=== PATIENT | male | born 1955 | race Caucasian/White ===

== ENCOUNTER 2016-06-25 10:51 | Emergency (ER) | payer OTHER, MEDICARE ==
[~2016-06-25] VITALS: Ht 182.9 cm; Wt 106.6 kg
[~2016-06-25 10:51] MED LIST: FLEXERIL10 MG PO; PREDNISONE10 MG PO
--- NOTE | 2016-06-25 11:16 | ED CARDIAC/CP/PALPITATIONS ---
See Addendum History of Present Illness General Chief Complaint: Chest Pain Stated Complaint: CP Source: patient, family, old records Exam Limitations: no limitations Vital Signs & Intake/Output Vital Signs & Intake/Output Vital Signs Date Time Temp Pulse Resp B/P B/P Pulse O2 O2 Flow FiO2 Mean Ox Delivery Rate 06/25 1401 97.2 83 18 120/68 96 Room Air 06/25 1100 98.4 94 18 161/77 95 Room Air Allergies Coded Allergies: NO KNOWN ALLERGIES (12/23/13) Reconcile Medications Cyclobenzaprine HCl 10 MG TABLET 1 TAB PO BID PRN pain Insulin Glargine,Hum.rec.anlog (Lantus Solostar) 100 UNIT/ML (3 ML) INSULN.PEN 15 U SC DAILY DIABETES (Reported) Insulin Glargine,Hum.rec.anlog (Lantus Solostar) 100 UNIT/ML (3 ML) INSULN.PEN 44 UNIT SC QPM DIABETES (Reported) Lisinopril 20 MG TABLET 1 TAB PO DAILY HEART (Reported) Metformin HCl 500 MG TABLET 1 TAB PO BID DIABETES (Reported) Nortriptyline HCl 25 MG CAPSULE 1 CAP PO QPM UNKNOWN (Reported) Oxycodone HCl 30 MG TABLET 1 TAB PO Q4 PAIN (Reported) Oxycodone HCl (Oxycontin) 60 MG TAB.ER.12H 1 TAB PO TID PAIN (Reported) Pregabalin (Lyrica) 75 MG CAPSULE 1 CAP PO TID PAIN (Reported) Trazodone HCl 50 MG TABLET 1 TAB PO QPM SLEEP (Reported) Triage Note: 60 Y/O MALE C/O L SIDED CHEST PAIN RADIATING INTO L BACK X 2 DAYS. STATES PAIN WORSE WITH BREATHING. DENIES OTHER COMPLAINTS. EKG COMPLETED AND SIGNED - NORMAL SINUS, RATE 94 Triage Nurses Notes Reviewed? yes Onset: Abrupt Duration: day(s): (2.5), constant Timing: recent history Quality/Severity: moderate, aching, sharp Location: L SIDED Radiation: back Activities at Onset: S/P DOING YARD WORK Prior Chest Pain/Card Workup: no prior chest pain Nitro Today/Relief: no nitro taken today Aspirin Today: no aspirin today Associated Symptoms: DENIES HPI: 60-year-old male with history of hypertension diabetes chronic back pain for which she is in pain management presents complaining of left-sided chest pain that radiates around into his left upper back for the past 2 and half days. He states his symptoms came on after he was doing arc work outside the holes and gardening. Patient denies fall or other trauma. Pain is worse with coughing outpatient. He has not taken anything for his symptoms. He denies dizziness light has palpitations. No shortness of breath or cough or hemoptysis. He denies any and all pain nausea or vomiting. No recent immobility no leg pain or swelling. (YURIDIA HARRISON) Past History Travel History Traveled to [place] past 21 day No Medical History Any Pertinent Medical History? 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 No (YURIDIA HARRISON) Review of Systems Review of Systems Constitutional: Reports: see HPI. All Other Systems: Reviewed and Negative Comments Review of systems: See HPI, All other systems negative. Constitutional, no chills no fever, no malaise HEENT: no sore throat no congestion, no ear pain Cardiovascular: chest pain , no palpitation , no orthopnea Skin: no rashes, no change in skin Respiratory: No dyspnea no cough no sputum no hemoptysis GI: No nausea no vomiting, no diarrhea, no bloating/constipation : No dysuria Muscle skeletal: No joint pain, no joint swelling, no back pain, no neck pain, Neurologic: No numbness no headache Psych: No stress Heme/endocrine: No bruising no bleeding Immunology: No lymphadenopathy (YURIDIA HARRISON) Physical Exam Physical Exam General Appearance: well developed/nourished, alert, awake Cardiovascular: regular rate/rhythm Comments: Well-developed well-nourished person in no acute distress HEENT: Normal EENT exam; PERRL, EOMI, HEAD is atraumatic. moist mucous membranes. Neck: Supple, no lymphadenopathy, normal range of motion Back: Nontender, no CVA tenderness. Full range of motion Cardiovascular: Regular rate and rhythms no murmurs rubs or gallops, normal JVP Respiratory: Chest tender to palpation over the left axilla there is no bruising or ecchymosis.There were no bony deformities, no asymmetry. No respiratory distress. Patient speaking in full complete sentences. Breath sounds clear to auscultation bilaterally: NO W/R/R Abdomen: Soft, nontender nondistended, no appreciable organomegaly. Normal bowel sounds. No rebound/guarding, No appreciable enlargement of the abdominal aorta, No ascites. Extremity: No edema, full range of motion of extremities Neuro: Alert oriented x3, motor sensory normal. There were no obvious focal neurologic abnormalities. Skin: No appreciable rash on exposed skin, skin is warm and dry. Psych: Mood and affect is normal, memory and judgment is normal. Core Measures ACS in differential dx? Yes Severe Sepsis Present: No Septic Shock Present: No (NIDA ADAMS,YURIDIA) Progress Differential Diagnosis: AMI, aortic dissection, atrial fibrillation, cholecystitis, CHF/pulm edema, costochondritis, musculoskeletal pain, myocarditis, pancreatitis, pericarditis, pneumonia, pneumothorax, pulmonary embolism, PUD/GERD, PVCs/PACs, unstable angina, V-fib/V-Tach Plan of Care: Orders Procedure Date/time Status LIPASE 06/25 1145 Complete AMYLASE 06/25 1145 Complete Telemetry/Double End Trimmer 06/25 1104 Active TROPONIN LEVEL 06/25 1104 Complete PROTHROMBIN TIME 06/25 1104 Complete MAGNESIUM 06/25 1104 Complete D-DIMER 06/25 1104 Complete COMPREHENSIVE METABOLIC PANEL 06/25 1104 Complete CBC WITHOUT DIFFERENTIAL 06/25 1104 Complete EKG 06/25 1052 Active Current Medications Sig/Michael Start time Last Medication Dose Stop Time Status Admin Hydromorphone HCl 1 MG ONCE ONE 06/25 1130 CAN (Dilaudid) 06/25 1131 Laboratory Tests 06/25/16 1145: Anion Gap 12, Estimated GFR > 60, BUN/Creatinine Ratio 22.5, Glucose 404 H, Calcium 8.9, Magnesium 1.5 L, Total Bilirubin 0.7, AST 39, ALT 40, Alkaline Phosphatase 245 H, Troponin I < 0.01, Total Protein 7.2, Albumin 3.1 L, Globulin 4.1, Albumin/Globulin Ratio 0.8 L, Amylase 46, Lipase 52, PT 11.8, INR 1.13, D-Dimer 1622 H, CBC w Diff MAN DIFF ORDERED, RBC 4.03 L, MCV 83.3, MCH 27.2, RDW 18.4 H, MPV 11.3 H, Segmented Neutrophils 56, Band Neutrophils 2, Lymphocytes 31, Monocytes 9, Eosinophils 2, Platelet Estimate ADEQUATE, Normocytic RBCs VERIFIED, Normochromic RBCs VERIFIED, Tyson Cells FEW, PUBS MCHC 32.7 L 06/25/16 1117: D-Dimer Cancelled 06/25/16 1116: Amylase Cancelled, Lipase Cancelled Labs ordered patient medicated with Dilaudid 1 mg Iv Flexeril as he states this is helpful for her pain is reproducible and chest K's was discussed with Dr. harrison 1230 pt reports improvement in sx, d/w him his lab results to date and need for cta 06/25/2016 2:01:21 PM I discussed with the patient and family at length all of his CAT scan and lab results and incidental findings including h including the pleural effusion, and enlarged lymph nodes and liver findings. Discussed the need for close follow-up with his primary care physician given elevated white blood cell count today. They feel comfortable with plan. For the same- given the pain has been present for 2 and half days after taking and doing yard work reproducible with palpation and CHOP later required repeat troponin pain is reproducible he feels comfortable plan Ad an extensive conversation regarding need for close follow up with their primary care physician this week as well as return precautions. I answered all of their questions, they feel comfortable with the plan and follow- up care. I discussed the medications that they will receive with the patient. I gave them signs and symptoms that could indicate an adverse reaction. I have advised them to limit their activities until they can see how they respond to the medication. (NIDA ADAMS,YURIDIA) Diagnostic Imaging: Viewed by Me: Radiology Read. Discussed w/RAD: Radiology Read. Radiology Impression: PATIENT: CELINA PRECIADO PRESENT AGE: 60 PATIENT ACCOUNT NO: [id number] : 56 LOCATION: [facility] ORDERING PHYSICIAN: YURIDIA ADAMS SERVICE DATE: 06/25/16 EXAM TYPE: RAD - XRY- PORTABLE CHEST XRAY EXAMINATION: XR PORTABLE CHEST CLINICAL INFORMATION: Left- sided chest pain COMPARISON: Chest x-ray most recent prior dated 07/30/2005 TECHNIQUE: Portable frontal view of the chest was obtained. FINDINGS: Borderline heart size. Minor streaky infiltrate or atelectasis noted in the left base. Trace left effusion. Right lung is clear. Bony thorax is intact. IMPRESSION: Streaky infiltrate or atelectasis left base. Trace left effusion. DICTATED BY: MARIA FERNANDA BENSON MD DATE/TIME DICTATED:06/25/161225 CARD SELLER:ABRAHAM DATE/TIME TRANSCRIBED:06/25/161225 CONFIDENTIAL, DO NOT COPY WITHOUT APPROPRIATE AUTHORIZATION. <Electronically signed in Other Vendor System> SIGNED BY: MARIA FERNANDA BENSON MD 06/25/16 1232, PATIENT: CELINA PRECIADO PRESENT AGE: 60 PATIENT ACCOUNT NO: [id number] : 57 LOCATION: [facility] ORDERING PHYSICIAN: YURIDIA ADAMS SERVICE DATE: 06/25/16 EXAM TYPE : CAT - CTA CHEST-PULMONARY EMBOLISM EXAMINATION: CT ANGIOGRAM OF THE CHEST WITH AND WITHOUT CONTRAST (CT PULMONARY ANGIOGRAM FOR PE) CLINICAL INFORMATION: Left- sided pleuritic chest pain. COMPARISON: Chest x-ray dated 06/25/2016 TECHNIQUE: Prior to contrast administration, noncontrast localization images were obtained. Subsequently, multidetector volumetric imaging was performed from the thoracic inlet to below the diaphragms following the administration of 94 mL Optiray 350 intravenous contrast. No contrast reaction reported. Sagittal, coronal, and MIP oblique sagittal reformatted images were obtained on the CT workstation, uploaded to PACS, and reviewed. Total exam dose-length product 566.39 mGy-cm. FINDINGS: QUALITY OF STUDY/CONTRAST BOLUS: Satisfactory PULMONARY ARTERIES: No central or segmental pulmonary emboli. THORACIC AORTA: No aneurysm or dissection. Atherosclerotic disease with intimal calcification of the coronary arteries. LUNG: Mild hazy groundglass attenuation bilateral upper lobes may represent minor mosaic perfusion or air-trapping. Atelectatic changes noted in the left base. PLEURA: Small left pleural effusion. MEDIASTINUM: Multiple small mildly enlarged lymph nodes noted in the mediastinum and the prevascular space, pretracheal and precarinal region. Larger precarinal lymph node measures approximately 1.2 cm in short axis. No evidence of septal bowing or right heart strain. CHEST WALL/AXILLA: No axillary or internal mammary lymphadenopathy. OSSEOUS STRUCTURES: Postoperative changes with posterior rods and pedicle screws lower thoracic/upper lumbar spine. No acute osseous abnormality. Degenerative changes of the thoracic spine. UPPER ABDOMEN: Slightly nodular hepatic margin. Findings are compatible with underlying cirrhosis. Small peripancreatic/ periportal lymph nodes. No reflux of contrast noted into the hepatic veins. Distended appearing gallbladder incompletely included in the examination. IMPRESSION: 1. There is no definite CT evidence of acute pulmonary embolism. 2. Small left pleural effusion with adjacent compression atelectasis left base. 3. Hazy patchy groundglass attenuation bilateral lungs with upper lobe predominance may represent mosaic perfusion or secondary to mild air-trapping. 4. Mildly enlarged mediastinal lymph nodes. These may represent reactive nodes. Monitoring is recommended. 5. Nodular hepatic margin compatible with cirrhosis. hydropic appearing gallbladder incompletely included in examination. VTE: negative DICTATED BY: MARIA FERNANDA BENSON MD DATE/TIME DICTATED:06/25/161316 CARD SELLER:ABRAHAM DATE/TIME TRANSCRIBED:06/25/161316 CONFIDENTIAL, DO NOT COPY WITHOUT APPROPRIATE AUTHORIZATION. <Electronically signed in Other Vendor System> SIGNED BY: MARIA FERNANDA BENSON MD 06/25/16 1334 Initial ED EKG: normal axis, normal intervals, normal p-waves, normal QRS complex, normal sinus rhythm (90) Prior EKG: unchanged (08/2014) Rhythm Strip: normal sinus rhythm (YURIDIA HARRISON) Departure Departure Time of Disposition: 1345 Disposition: HOME OR SELF CARE Condition: Stable Clinical Impression Primary Impression: Chest wall muscle strain Secondary Impressions: Enlarged lymph nodes, Pleural effusion Referrals: SOPHIE GALLEGOS,CAYLA Dennis Additional Instructions: Follow-up with your primary care physician as discussed this week if symptoms persist. Rest and no heavy lifting continue taking her pain medication as prescribed. Flexeril as directed this was sent to [facility]. Return to ER anytime sooner with any concerns Departure Forms: Customer Survey General Discharge Information Prescriptions: Current Visit Scripts Cyclobenzaprine HCl 1 TAB PO BID PRN pain #15 TAB (YURIDIA HARRISON) PA/WAREHOUSE TRAINER Co-Sign Statement Statement: ED Attending supervision documentation- [] I saw and evaluated the patient. I have also reviewed all the pertinent lab results and diagnostic results. I agree with the findings and the plan of care as documented in the PA's/WAREHOUSE TRAINER's documentation. [x] I have reviewed the ED Record and agree with the PA's/WAREHOUSE TRAINER's documentation. [] Additions or exceptions (if any) to the PAs/WAREHOUSE TRAINER's note and plan are summarized below: [] (INES CARBONE,SHAD Foy) Critical Care Note Critical Care Note Critical Care Time: non-applicable (NIDA ADAMS,YURIDIA)
[2016-06-25] MEDS ORDERED: LANTUS SOL100 UNIT/1 SC ×2 (12:01)
[2016-06-25 12:02] LABS: HEMATOCRIT 33.5 % (42-52); MEAN CORPUSCULAR HGB 27.2 PG (27.0-31.0); MEAN CORPUSCULAR HGB CONC 32.7 G/DL (33.0-37.0); MEAN CORPUSCULAR VOLUME 83.3 FL (80.0-94.0); MEAN PLATELET VOLUME 11.3 FL (7.4-10.4); PLATELET COUNT 348 /CUMM (130-400); RBC DISTRIBUTION WIDTH 18.4 % (11.5-14.5); RED BLOOD CELL CT 4.03 /CUMM (4.70-6.10); WHITE BLOOD CELL COUNT 16.6 /CUMM (4.8-10.8)
[2016-06-25] MEDS ORDERED: LYRICA75 M1 PO (12:02)
[2016-06-25] MEDS ORDERED: LISINOPRIL20 M1 PO (12:03)
[2016-06-25] MEDS ORDERED: NORTRIPTYLINE H25 M2 PO (12:03)
[2016-06-25] MEDS ORDERED: TRAZODONE HCL50 M1 PO (12:03)
[2016-06-25] MEDS ORDERED: METFORMIN HCL500 M3 PO (12:04)
[2016-06-25] MEDS ORDERED: OXYCODONE HCL30 M1 PO (12:09)
[2016-06-25] MEDS ORDERED: OXYCONTIN60 M1 PO (12:09)
[2016-06-25 12:15] LABS: PT 11.8 SEC (9.4-12.5)
--- NOTE | 2016-06-25 12:32 | RADIOLOGY REPORT ---
EXAMINATION: XR PORTABLE CHEST CLINICAL INFORMATION: Left-sided chest pain COMPARISON: Chest x-ray most recent prior dated 07/30/2005 TECHNIQUE: Portable frontal view of the chest was obtained. FINDINGS: Borderline heart size. Minor streaky infiltrate or atelectasis noted in the left base. Trace left effusion. Right lung is clear. Bony thorax is intact. IMPRESSION: Streaky infiltrate or atelectasis left base. Trace left effusion.
--- NOTE | 2016-06-25 13:34 | CT SCAN REPORT ---
EXAMINATION: CT ANGIOGRAM OF THE CHEST WITH AND WITHOUT CONTRAST (CT PULMONARY ANGIOGRAM FOR PE) CLINICAL INFORMATION: Left-sided pleuritic chest pain. COMPARISON: Chest x-ray dated 06/25/2016 TECHNIQUE: Prior to contrast administration, noncontrast localization images were obtained. Subsequently, multidetector volumetric imaging was performed from the thoracic inlet to below the diaphragms following the administration of 94 mL Optiray 350 intravenous contrast. No contrast reaction reported. Sagittal, coronal, and MIP oblique sagittal reformatted images were obtained on the CT workstation, uploaded to PACS, and reviewed. Total exam dose-length product 566.39 mGy-cm. FINDINGS: QUALITY OF STUDY/CONTRAST BOLUS: Satisfactory PULMONARY ARTERIES: No central or segmental pulmonary emboli. THORACIC AORTA: No aneurysm or dissection. Atherosclerotic disease with intimal calcification of the coronary arteries. LUNG: Mild hazy groundglass attenuation bilateral upper lobes may represent minor mosaic perfusion or air-trapping. Atelectatic changes noted in the left base. PLEURA: Small left pleural effusion. MEDIASTINUM: Multiple small mildly enlarged lymph nodes noted in the mediastinum and the prevascular space, pretracheal and precarinal region. Larger precarinal lymph node measures approximately 1.2 cm in short axis. No evidence of septal bowing or right heart strain. CHEST WALL/AXILLA: No axillary or internal mammary lymphadenopathy. OSSEOUS STRUCTURES: Postoperative changes with posterior rods and pedicle screws lower thoracic/upper lumbar spine. No acute osseous abnormality. Degenerative changes of the thoracic spine. UPPER ABDOMEN: Slightly nodular hepatic margin. Findings are compatible with underlying cirrhosis. Small peripancreatic/periportal lymph nodes. No reflux of contrast noted into the hepatic veins. Distended appearing gallbladder incompletely included in the examination. IMPRESSION: 1. There is no definite CT evidence of acute pulmonary embolism. 2. Small left pleural effusion with adjacent compression atelectasis left base. 3. Hazy patchy groundglass attenuation bilateral lungs with upper lobe predominance may represent mosaic perfusion or secondary to mild air-trapping. 4. Mildly enlarged mediastinal lymph nodes. These may represent reactive nodes. Monitoring is recommended. 5. Nodular hepatic margin compatible with cirrhosis. hydropic appearing gallbladder incompletely included in examination. VTE: negative
[2016-06-25] MEDS ORDERED: CYCLOBENZAPRINE10 M1 PO (13:46)
[2016-06-25 14:01] VITALS: BP 120/68
== END 2016-06-25 14:08 ==
LOC: ERH 10:51
PROVIDERS: Physician Assistant Medical
DX: S29.011A Strain of muscle and tendon of front wall of thorax, initial encounter (principal); J90 Pleural effusion, not elsewhere classified; R59.9 Enlarged lymph nodes, unspecified; R07.9 Chest pain, unspecified
CPT/HCPCS: 93005; 93010; 96374; 96376

== ENCOUNTER 2016-06-27 22:13 | Emergency (ER) | payer OTHER, MEDICARE ==
[~2016-06-27] VITALS: Ht 182.9 cm; Wt 108.9 kg
[~2016-06-27 22:13] MED LIST changes: +CYCLOBENZAPRINE10 M1 PO; +LANTUS SOL100 UNIT/1 SC; +LISINOPRIL20 M1 PO; +LYRICA75 M1 PO; +METFORMIN HCL500 M3 PO; +NORTRIPTYLINE H25 M2 PO; +OXYCODONE HCL30 M1 PO; +OXYCONTIN60 M1 PO; +TRAZODONE HCL50 M1 PO
--- NOTE | 2016-06-27 23:22 | ED GENERAL ADULT ---
History of Present Illness General Chief Complaint: General Adult Stated Complaint: PT CAME IN FOR RIB PAIN AND BACK BREATHING PROBLEM Source: patient Exam Limitations: no limitations Vital Signs & Intake/Output Vital Signs & Intake/Output Vital Signs Date Time Temp Pulse Resp B/P B/P Pulse O2 O2 Flow FiO2 Mean Ox Delivery Rate 06/28 0248 98.7 98 18 130/72 96 Room Air 06/27 2228 101.7 120 18 137/87 97 Room Air ED Intake and Output 06/28 0000 06/27 1200 Intake Total Output Total Balance Patient 240 lb Weight Weight Reported by Patient Measurement Method Allergies Coded Allergies: NO KNOWN ALLERGIES (12/23/13) Reconcile Medications Benzonatate (Tessalon Perle) 100 MG CAPSULE 1-2 CAP PO TID PRN cough Cyclobenzaprine HCl 10 MG TABLET 1 TAB PO BID PRN pain Doxycycline Hyclate 100 MG TABLET 1 TAB PO BID bronchitis Insulin Glargine,Hum.rec.anlog (Lantus Solostar) 100 UNIT/ML (3 ML) INSULN.PEN 15 U SC DAILY DIABETES (Reported) Insulin Glargine,Hum.rec.anlog (Lantus Solostar) 100 UNIT/ML (3 ML) INSULN.PEN 44 UNIT SC QPM DIABETES (Reported) Lisinopril 20 MG TABLET 1 TAB PO DAILY HEART (Reported) Metformin HCl 500 MG TABLET 1 TAB PO BID DIABETES (Reported) Nortriptyline HCl 25 MG CAPSULE 1 CAP PO QPM UNKNOWN (Reported) Oxycodone HCl 30 MG TABLET 1 TAB PO Q4 PAIN (Reported) Oxycodone HCl (Oxycontin) 60 MG TAB.ER.12H 1 TAB PO TID PAIN (Reported) Pregabalin (Lyrica) 75 MG CAPSULE 1 CAP PO TID PAIN (Reported) Trazodone HCl 50 MG TABLET 1 TAB PO QPM SLEEP (Reported) Triage Note: PT TO TRIAGE WITH C/O CHRONIC LOWER BACK PAIN RADIATING TO MIDDLE BACK AND RIB CAGE. HX OF BACK SURGERY IN . PT CURRENTLY ON OXYCODONE AND OXYCOTIN. DENIES RECENT INJURY. TEMP 101.8 IN TRIAGE. Triage Nurses Notes Reviewed? yes Onset: Gradual Duration: week(s):, waxing and waning Timing: recent history Injury Environment: home Severity: moderate Modifying Factors: Improves With: rest. Worsens With: movement, other (palpation coughing). Associated Symptoms: cough HPI: 60-year-old gentleman history of diabetes presents with left-sided chest wall pain and cough for the past several weeks. He was seen at [place] 2 days ago and had a CAT scan that was negative for PE but revealed some airway disease as well as a chest x-ray with that showed small effusion. He notes that the pain is on the left side of his chest wall, worse with coughing and palpation. He notes that he feels slightly warm at times. The chest pain does not radiate up or down his neck or arms. He has no weakness or syncopal type symptoms he is otherwise well. Past History Travel History Traveled to [place] past 21 day No Medical History Any Pertinent Medical History? 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 No Review of Systems Review of Systems Constitutional: Reports: no symptoms. EENTM: Reports: no symptoms. Respiratory: Reports: no symptoms. Cardiovascular: Reports: no symptoms. GI: Reports: no symptoms. Genitourinary: Reports: no symptoms. Musculoskeletal: Reports: no symptoms. Skin: Reports: no symptoms. Neurological/Psychological: Reports: no symptoms. Hematologic/Endocrine: Reports: no symptoms. Immunologic/Allergic: Reports: no symptoms. All Other Systems: Reviewed and Negative Physical Exam Physical Exam General Appearance: well developed/nourished, mild distress Head: atraumatic, normal appearance Eyes: Bilateral: normal appearance. Ears, Nose, Throat: normal pharynx, normal ENT inspection Neck: normal inspection, supple, full range of motion Respiratory: no respiratory distress, rhonchi, left-sided rib cage tenderness to palpation. Cardiovascular: regular rate/rhythm Gastrointestinal: normal bowel sounds, soft, non-tender, no organomegaly Back: normal inspection, normal range of motion Extremities: normal inspection, normal capillary refill, normal range of motion, no edema Neurologic/Psych: no motor/sensory deficits, awake, alert, oriented x 3 Skin: intact, normal color, warm/dry Core Measures ACS in differential dx? No CVA/TIA Diagnosis: No Severe Sepsis Present: No Septic Shock Present: No Progress Differential Diagnoses I considered the following diagnoses in my evaluation of the patient: Bronchitis versus chest wall pain. I doubt PE or MS given his physical exam and history. Plan of Care: Orders Procedure Date/time Status THROAT CULTURE W/QUICK STREP 06/29 131 Active TROPONIN LEVEL 06/27 2332 Complete COMPREHENSIVE METABOLIC PANEL 06/27 2332 Complete CBC WITHOUT DIFFERENTIAL 06/27 2332 Complete Laboratory Tests 06/28/16 0046: Anion Gap 12, Estimated GFR > 60, BUN/Creatinine Ratio 17.8, Glucose 347 H, Calcium 8.8, Total Bilirubin 1.1, AST 42, ALT 33, Alkaline Phosphatase 253 H, Troponin I < 0.01, Total Protein 7.7, Albumin 3.3 L, Globulin 4.4 H, Albumin/ Globulin Ratio 0.8 L, CBC w Diff MAN DIFF ORDERED, RBC 4.25 L, MCV 83.2, MCH 27.3, RDW 17.5 H, MPV 10.3, Segmented Neutrophils 65, Band Neutrophils 2, Lymphocytes 24, Monocytes 7, Eosinophils 2, Platelet Estimate ADEQUATE, Poikilocytosis 1+, Anisocytosis 1+, Target Cells 1+, PUBS MCHC 32.8 L, Fld Total RBCs Counted 100 Initial ED EKG: normal axis, normal intervals, normal p-waves, normal QRS complex, normal sinus rhythm Comments: PATIENT: CELINA PRECIADO PRESENT AGE: 60 PATIENT ACCOUNT NO: [id number] : 57 LOCATION: [facility] ORDERING PHYSICIAN: LEDA SLAUGHTER MD SERVICE DATE: 06/27/16 EXAM TYPE: RAD - XRY-CHEST XRAY, PA AND LATERAL EXAMINATION: CHEST 2 VIEWS CLINICAL INFORMATION: Cough, fever. COMPARISON: June 25, 2016. TECHNIQUE: PA and lateral views of the chest were obtained. FINDINGS: The cardiac silhouette is not enlarged. The mediastinal and hilar contours are unremarkable. There is a small left pleural effusion with associated airspace disease. The osseous structures are stable with posterior spinal fusion hardware partially visualized. There is evidence of prior left shoulder surgery. IMPRESSION: Small left pleural effusion with associated airspace disease. DICTATED BY: CELINA QUESADA MD DATE/TIME DICTATED:06/28/1612 LOOM CHANGEOVER OPERATOR:ABRAHAM DATE/TIME TRANSCRIBED:06/28/1612 CONFIDENTIAL, DO NOT COPY WITHOUT APPROPRIATE AUTHORIZATION. <Electronically signed in Other Vendor System> SIGNED BY: CELINA QUESADA MD 06/28/1622 Departure Departure Disposition: HOME OR SELF CARE Condition: Stable Clinical Impression Primary Impression: Chest wall pain Secondary Impressions: Bronchitis Referrals: ANA PATTERSON MD (PCP/Family) Departure Forms: Customer Survey General Discharge Information Prescriptions: Current Visit Scripts Doxycycline Hyclate 1 TAB PO BID #20 TAB Benzonatate (Tessalon Perle) 1-2 CAP PO TID PRN cough #30 CAP Ref 1 Critical Care Note Critical Care Note Critical Care Time: non-applicable
--- NOTE | 2016-06-28 00:23 | RADIOLOGY REPORT ---
EXAMINATION: CHEST 2 VIEWS CLINICAL INFORMATION: Cough, fever. COMPARISON: June 25, 2016. TECHNIQUE: PA and lateral views of the chest were obtained. FINDINGS: The cardiac silhouette is not enlarged. The mediastinal and hilar contours are unremarkable. There is a small left pleural effusion with associated airspace disease. The osseous structures are stable with posterior spinal fusion hardware partially visualized. There is evidence of prior left shoulder surgery. IMPRESSION: Small left pleural effusion with associated airspace disease.
[2016-06-28 00:53] LABS: HEMATOCRIT 35.3 % (42-52); MEAN CORPUSCULAR HGB 27.3 PG (27.0-31.0); MEAN CORPUSCULAR HGB CONC 32.8 G/DL (33.0-37.0); MEAN CORPUSCULAR VOLUME 83.2 FL (80.0-94.0); MEAN PLATELET VOLUME 10.3 FL (7.4-10.4); PLATELET COUNT 365 /CUMM (130-400); RBC DISTRIBUTION WIDTH 17.5 % (11.5-14.5); RED BLOOD CELL CT 4.25 /CUMM (4.70-6.10); WHITE BLOOD CELL COUNT 16.8 /CUMM (4.8-10.8)
[2016-06-28] MEDS ORDERED: DOXYCYCLINE HY100 M4 PO (01:37)
[2016-06-28] MEDS ORDERED: TESSALON PERLE100 M1 PO (01:40)
[2016-06-28 02:48] VITALS: BP 130/72
== END 2016-06-28 02:48 ==
LOC: ERH 22:13
PROVIDERS: Pediatrics
DX: J40 Bronchitis, not specified as acute or chronic (principal); R07.89 Other chest pain; F17.200 Nicotine dependence, unspecified, uncomplicated
CPT/HCPCS: 96372; J1885